=== PATIENT | male | born 1980 | race African-American/Black ===

== ENCOUNTER 2020-04-05 09:31 | Emergency (ER) | payer OTHER, SELFPAY ==
[2020-04-05 09:50] VITALS: BP 155/87; PULSE 70; RESP 18; TEMP 36.9; O2SAT 100
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
== END 2020-04-05 10:25 | disposition home or self-care (01) ==
PROVIDERS: Emergency Provider Nurse Practitioner
DX: H60.501 Unspecified acute noninfective otitis externa, right ear (principal); H66.90 Otitis media, unspecified, unspecified ear; Z87.891 Personal history of nicotine dependence; I10 Essential (primary) hypertension
CPT/HCPCS: 99213; G0463

== ENCOUNTER → 2022-12-30 10:14 | Outpatient (CLI) | payer OTHER, SELFPAY ==
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
[2022-12-30 10:33] LABS: Estimated Glomerular Filt Rate > 60
== END ==
PROVIDERS: PCP Family Medicine; Visit Provider Family Medicine
DX: L08.9 Local infection of the skin and subcutaneous tissue, unspecified (principal); L91.0 Hypertrophic scar; R59.0 Localized enlarged lymph nodes
CPT/HCPCS: 71260; 74160; Q9967

== ENCOUNTER 2023-02-22 08:32 | Outpatient (CLI) | payer OTHER, SELFPAY ==
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
[2023-03-15 11:36] VITALS: BMI 31.0
== END 2023-02-24 12:58 | disposition home or self-care (01) ==
LOC: ANHCSM 08:34
PROVIDERS: PCP Family Medicine; Visit Provider Family Medicine
DX: G47.33 Obstructive sleep apnea (adult) (pediatric) (principal)
CPT/HCPCS: 95800

== ENCOUNTER → 2023-02-28 10:30 | Outpatient (CLI) | payer OTHER, SELFPAY ==
--- NOTE | ~2023-02-28 | US_ITS ---
US axilla BI 02/28/2023 10:54 Indication: Bilateral axillary lymphadenopathy Procedure: High-resolution bilateral axillary ultrasound Comparison: No prior studies for comparison. Findings: There is mild bilateral axillary lymphadenopathy, largest in the right axilla measuring 2.1 x 2.1 x 1.2 cm and in the left axilla measuring 2.4 x 2.7 x 1.3 cm. Impression: 1: Bilateral axillary lymphadenopathy, most likely reactive, although lymphoma or metastatic disease are not excluded. Consider percutaneous biopsy as clinically warranted. Reviewed, dictated and finalized at location A. Impression: 1: Bilateral axillary lymphadenopathy, most likely reactive, although lymphoma or metastatic disease are not excluded. Consider percutaneous biopsy as clinica lly warranted.
== END ==
PROVIDERS: PCP Nurse Practitioner Family; Visit Provider Nurse Practitioner Family
DX: R59.0 Localized enlarged lymph nodes (principal)
CPT/HCPCS: 76882